=== PATIENT | female | born 1975 | race African-American/Black ===

== ENCOUNTER 2017-12-04 18:26 | Inpatient (IN) | payer BC, OTHER ==
[~2017-12-04] VITALS: Ht 170.2 cm; Wt 104.3 kg
[2017-12-04 19:32] LABS: Basophils # (auto) 0 uL; Eosinophils # (auto) 0.1 uL; Eosinophils % (auto) 0.8 % (0.0-7.0); Hematocrit 41.2 % (36.0-46.0); Hemoglobin 13.5 g/dL (12.2-16.2); Mean Corpuscular Hgb Conc. 32.8 g/dL (32.0-36.0); Monocytes # (auto) 0.9 uL
[2017-12-04 19:34] LABS: Basophils % (auto) 0.4 % (0.0-2.0); Lymphocytes # (auto) 4.1 uL; Lymphocytes % (auto) 41.2 % (10.0-50.0); Mean Corpuscular Volume 85.3 fL (80.0-100.0); Monocytes % (auto) 9.3 % (0.0-12.0); Neutrophils # (auto) 4.9 uL; Neutrophils % (auto) 48.3 % (37.0-80.0); Nucleated Red Blood Cells % 0.2 %; Platelet Count (auto) 449 10^3/uL (140-450); Red Blood Cells 4.82 10^6/uL (4.0-5.20); Red Cell Distribution Width 14.7 % (11.8-14.3); White Blood Cell 10.1 10^3/uL (4.4-10.8)
[2017-12-04 19:44] LABS: INR 0.98 (0.9-1.15); Partial Thromboplastin Time 35.2 sec (22.64-33.71); Prothrombin Time 10.7 sec (9.37-12.3)
[2017-12-04 19:56] LABS: Alanine Aminotransferase 23 U/L (13-56); Albumin 3.4 g/dL (3.4-5.0); Alkaline Phosphatase 96 U/L (45-117); Anion Gap 4 (5-15); Aspartate Aminotransferase 19 U/L (15-37); Bilirubin, Total 0.2 mg/dL (0.2-1.0); Blood Urea Nitrogen 7 mg/dL (7-18); Carbon Dioxide 26 mmol/L (21-32); Chloride 108 mmol/L (98-107); GFR African American 119 mL/min; GFR Non-African American 99 mL/min; Glucose 105 mg/dL (74-106); Magnesium 2.7 mg/dL (1.6-2.6); Potassium 3.6 mmol/L (3.5-5.1); Sodium 138 mmol/L (136-145); Total Protein 8.1 g/dL (6.4-8.2)
[2017-12-05] VITALS (8 sets, daily range): BP systolic 104–146; BP diastolic 76–93
[2017-12-05] MEDS ORDERED: KETOROLAC TROMETH 30 MG/ML 1ML VIAL IV ONE (02:15)
[2017-12-05] MEDS ORDERED: HYDROcodone-ACET 10/325MG TAB PO ONE (02:15)
[2017-12-05] MEDS ORDERED: LEVOFLOXACIN 250 MG TAB PO ONE (04:45)
[2017-12-05] MEDS ORDERED: MORPHINE SULFATE 4 MG/ML SYR/VIAL IV PRN (05:00)
[2017-12-05] MEDS ORDERED: ACETAMINOPHEN 325 MG TAB PO PRN (05:00)
[2017-12-05] MEDS ORDERED: ONDANSETRON HCL 4 MG/2 ML VIAL IV PRN (05:00)
[2017-12-05] MEDS ORDERED: TEMAZEPAM 15 MG CAP PO PRN (05:00)
[2017-12-05] MEDS ORDERED: NITROGLYCERIN 0.4 MG SL TAB SL PRN (05:00)
[2017-12-05] MEDS ORDERED: LEVOFLOXACIN 500 MG TAB ONE (05:33)
[2017-12-05] MEDS ORDERED: SULF500T8 PO (07:40)
[2017-12-05] MEDS ORDERED: METH-532 PO (07:40)
[2017-12-05] MEDS ORDERED: FOLI1TAB6 PO (07:40)
[2017-12-05] MEDS ORDERED: ZOLP10TA PO (07:40)
[2017-12-05] MEDS ORDERED: EPIN0.1516 IJ (07:42)
[2017-12-05] MEDS ORDERED: TRIA0.1P11 TOP (07:42)
[2017-12-05] MEDS ORDERED: TRAM50TA2 PO (07:42)
[2017-12-05] MEDS: HYDROcodone-ACET 5/325MG TAB PO PRN ×2 (09:01→16:52)
[2017-12-05] MEDS: ASPirin 81 mg TAB PO SCH (09:02)
[2017-12-05] MEDS: FAMOTIDINE 20 MG TAB PO SCH ×2 (09:02→22:23)
[2017-12-05] MEDS: ENOXAPARIN SOD 40 MG/0.4 ML SYRINGE SC SCH (09:04)
[2017-12-05 13:23] LABS: Urine WBC None Seen /hpf (0 - 5)
[2017-12-05 13:34] LABS: Urine Bacteria NONE SEEN /hpf (None Seen); Urine Blood Negative /uL (Negative); Urine Mucus MODERATE (None Seen); Urine Specific Gravity 1.038 (1.001-1.035)
[2017-12-05] MEDS: METHOCARBAMOL 500 MG TAB PO SCH ×2 (16:53→22:23)
[2017-12-06 05:00] VITALS: BP 122/90
[2017-12-06] MEDS: METHOCARBAMOL 500 MG TAB PO SCH ×2 (06:06→12:00)
[2017-12-06 06:40] LABS: Basophils # (auto) 0.1 uL; Basophils % (auto) 1.4 % (0.0-2.0); Eosinophils # (auto) 0.1 uL; Eosinophils % (auto) 0.8 % (0.0-7.0); Hematocrit 40.5 % (36.0-46.0); Hemoglobin 13.1 g/dL (12.2-16.2); Lymphocytes % (auto) 41.8 % (10.0-50.0); Mean Corpuscular Hemoglobin 28.1 pg (28.0-32.0); Mean Corpuscular Hgb Conc. 32.4 g/dL (32.0-36.0); Mean Corpuscular Volume 86.6 fL (80.0-100.0); Monocytes # (auto) 0.9 uL; Monocytes % (auto) 12.2 % (0.0-12.0); Neutrophils # (auto) 3.1 uL; Neutrophils % (auto) 43.8 % (37.0-80.0); Nucleated Red Blood Cells % 0.3 %; Platelet Count (auto) 417 10^3/uL (140-450); Red Blood Cells 4.67 10^6/uL (4.0-5.20); Red Cell Distribution Width 14.8 % (11.8-14.3); White Blood Cell 7.2 10^3/uL (4.4-10.8)
[2017-12-06 07:00] LABS: Albumin 3.1 g/dL (3.4-5.0); BUN/Creatinine Ratio 9.9; Bilirubin, Total 0.4 mg/dL (0.2-1.0); Calcium 8.4 mg/dL (8.5-10.1); Total Protein 7.6 g/dL (6.4-8.2)
[2017-12-06] MEDS: HYDROcodone-ACET 5/325MG TAB PO PRN (08:06)
[2017-12-06 08:58] VITALS: BP 134/80
[2017-12-06] MEDS: ASPirin 81 mg TAB PO SCH (09:52)
[2017-12-06] MEDS: ENOXAPARIN SOD 40 MG/0.4 ML SYRINGE SC SCH (09:52)
[2017-12-06] MEDS: FAMOTIDINE 20 MG TAB PO SCH (09:52)
[2017-12-06 12:22] VITALS: BP 111/68
== END 2017-12-06 17:34 | disposition home or self-care (01) | DRG 204 ==
LOC: ER 18:26 → TELE 18:27 → TELE-WESTW 12-05 05:45
PROVIDERS: ADMIT Nurse Practitioner; ATTEND Nurse Practitioner
DX: R07.81 Pleurodynia (principal); E66.9 Obesity, unspecified; G47.00 Insomnia, unspecified; M06.9 Rheumatoid arthritis, unspecified; G89.29 Other chronic pain; M54.9 Dorsalgia, unspecified; Z68.36 Body mass index [BMI] 36.0-36.9, adult
CPT/HCPCS: 36415; 71046; 80053; 81001; 83735; 84484; 85025; 85379; 85610; 85730; 87040; 93005; 93306; 96374; 96375; J1885; J2405